=== PATIENT | male | born 1965 | race Hispanic/Latino ===

== ENCOUNTER 2016-08-22 10:37 | Emergency (ER) | payer OTHER ==
[~2016-08-22] VITALS: Ht 167 cm; Wt 77.1 kg
[~2016-08-22 10:37] MED LIST: HYDROCODONE/ACE1 TA1 PO
[2016-08-22 10:50] VITALS: BP 121/76
--- NOTE | 2016-08-22 10:56 | ED HAND/WRIST INJURY COMPLAINT ---
History of Present Illness General Chief Complaint: General Adult Stated Complaint: SENT BY [facility] [employer] FOR EVAL OF NEEDLE STICK Source: patient, pv installer tech Exam Limitations: no limitations Vital Signs & Intake/Output Vital Signs & Intake/Output Vital Signs Date Time Temp Pulse Resp B/P B/P Pulse O2 O2 Flow FiO2 Mean Ox Delivery Rate 08/22 1050 96.4 70 20 121/76 98 Room Air ED Intake and Output 08/23 0000 08/22 1200 Intake Total 120 Output Total Balance 120 Intake, Oral 120 Patient 170 lb Weight Allergies Coded Allergies: NO KNOWN ALLERGIES (04/24/14) Reconcile Medications Emtricitabine/Tenofovir (Truvada 200 MG-300 MG Tablet) 200 MG-300 MG TABLET 1 TAB PO DAILY hiv prophylaxis HYDROCODONE/ACETAMINOPHEN (Hydrocodon-Acetaminophen 5-325) 1 EACH TABLET 1 TAB PO TID PAIN Ondansetron (Zofran Odt) 4 MG TAB.RAPDIS 1 TAB PO Q6 PRN NAUSEA Raltegravir Potassium (Isentress) 400 MG TABLET 1 TAB PO BID HIV PROPHYLAXIS Triage Note: PT PRESENTS TO ER C/O OF NEEDLESTICK TO LEFT THUMB ON SUNDAY WHILE AT WORK. 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 PT STATES HE CLEANED OUT HIS HAND RIGHT AWAY AND WASHED IT WITH SOAP BUT WAS TOLD TO FOLLOW UP DUE TO THE EXPOSURE . PT UNSURE WHAT TIME OF NEEDLE IT WAS AND WHOM IT BELONGED TOO. Triage Nurses Notes Reviewed? yes Occurred: just prior to arrival Timing: single episode today Injury Environment: work Severity: mild Pain/Injury Location: Left: 1st finger. Method of Injury: needlestick No Modifying Factors: none HPI: This is a 51-year-old male presents the ER for chief complaint of needle stick injury to his left thumb while collecting trash this morning at 10 am. He states he felt a poke through the trash bag and it bled and he squeezed his finger as much as possible to make it bleed more. He then washed it. Tetanus is up-to-date last obtained 3 years ago. Denies any medical problems or medications. Source of the needle is unknown. He cannot describe the needle as he did not see it. Past History Travel History Traveled to [place] past 21 day No Medical History Any Pertinent Medical History? see below for history Neurological: NONE EENT: NONE Cardiovascular: NONE Respiratory: NONE Gastrointestinal: NONE Hepatic: NONE Renal: NONE Musculoskeletal: NONE Psychiatric: NONE Endocrine: NONE Tetanus Vaccine: 04/24/14 Surgical History Surgical History: non-contributory Psychosocial History What is your primary language Bolivian Tobacco Use: Never used ETOH Use: denies use Illicit Drug Use: denies illicit drug use Family History Hx Contributory? No Review of Systems Review of Systems Constitutional: Denies: chills, fever. EENTM: Reports: no symptoms. Respiratory: Denies: cough. Cardiovascular: Denies: chest pain, palpitations. GI: Reports: no symptoms. Genitourinary: Reports: no symptoms. Musculoskeletal: Reports: no symptoms. Skin: Reports: no symptoms. Neurological/Psychological: Reports: no symptoms. Hematologic/Endocrine: Reports: bleeding. Denies: bruising, polyuria, polydipsia. Immunologic/Allergic: Denies: splenectomy. All Other Systems: Reviewed and Negative Physical Exam Physical Exam General Appearance: well developed/nourished, mild distress Head: atraumatic Eyes: Bilateral: PERRL, EOMI. Ears, Nose, Throat: normal pharynx, normal ENT inspection, hearing grossly normal Neck: normal inspection, supple Cardiovascular/Respiratory: normal breath sounds, regular rate/rhythm Back: normal inspection Shoulder Left: normal range of motion, mass Shoulder Right: normal range of motion, normal inspection Elbow Left: normal range of motion, normal inspection Elbow Right: normal range of motion, normal inspection Forearm Left: normal range of motion, normal inspection Forearm Right: normal range of motion, normal inspection Wrist Left: normal range of motion, normal inspection Wrist Right: normal range of motion, normal inspection Hand Left: normal range of motion, PUNCTURE WOUND TO LEFT THUMB Hand Right: normal inspection, normal range of motion Neurologic/Tendon: normal sensation, normal motor functions, normal tendon functions Skin: intact, normal color, warm/dry Lymphatic: no anterior cervical salima Progress Differential Diagnosis: NEEDLESTICK INJURY Plan of Care: Orders Procedure Date/time Status HIV EXPOSURE/NEEDLESTICK 08/22 1042 Complete HEPT C ANTIBODY 08/22 1042 Complete HEPT B SURFACE ANTIBODY 08/22 1042 Complete GAMMA GLUTAMYL TRANSFERASE 08/22 1042 Complete COMPREHENSIVE METABOLIC PANEL 08/22 1042 Complete CBC WITHOUT DIFFERENTIAL 08/22 1042 Complete TRNSFRASE ASPART AMINO 08/22 1042 Complete TRNSFRAS ALANINE AMINO 05/30 1042 Complete Laboratory Tests 08/22/16 1137: Anion Gap 9, Estimated GFR > 60, BUN/Creatinine Ratio 17.1, Glucose 102 H, Calcium 9.4, Total Bilirubin 0.3, GGT 19, AST 34, ALT 42, Alkaline Phosphatase 59, Total Protein 6.9, Albumin 4.1, Globulin 2.8, Albumin/Globulin Ratio 1.5, CBC w Diff NO MAN DIFF REQ, RBC 4.83, MCV 87.1, MCH 28.6, RDW 13.4, MPV 7.3 L, Gran % 70.4, Lymphocytes % 21.6, Monocytes % 6.7, Eosinophils % 0.9, Basophils % 0.4, Absolute Granulocytes 5.5, Absolute Lymphocytes 1.7, Absolute Monocytes 0.5 , Absolute Eosinophils 0.1, Absolute Basophils 0, PUBS MCHC 32.9 L, Hep Bs Antibody NONREACTIVE, Hepatitis C Antibody NONREACTIVE, HIV 1&2 Antibody NONREACTIVE 08/22/16 1056: Hep Bs Antibody Cancelled, Hepatitis C Antibody Cancelled, HIV 1&2 Antibody Cancelled LABS DRAWN AND SENT. PEP PROPHYLAXIS DISCUSSED WITH PATIENT AND MEDICATIONS INITIATED IN THE ER. PATIENT INSTRUCTED WITH MAINTENANCE SUPERVISOR [employer]LECT[employer] TO FOLLOW UP WITH OCCUPATIONAL MEDICINE. (CASSANDRA GARLAND,HECTOR) Departure Departure Disposition: HOME OR SELF CARE Condition: Stable Clinical Impression Primary Impression: Needlestick injury of finger Referrals: PATIENT HAS NO PRIMARY CARE DR (PCP/Family) Additional Instructions: Follow-up with occupational medicine for further testing. Your prescriptions for the medications which we discussed R at her pharmacy in [place]. Please return to the ER for any changing or worsening symptoms. Departure Forms: Customer Survey General Discharge Information Prescriptions: Current Visit Scripts Emtricitabine/Tenofovir (Truvada 200 MG-300 MG Tablet) 1 TAB PO DAILY #30 TAB Raltegravir Potassium (Isentress) 1 TAB PO BID #60 TAB Ondansetron (Zofran Odt) 1 TAB PO Q6 PRN NAUSEA #20 TAB
[2016-08-22] MEDS ORDERED: ZOFRAN ODT4 M1 PO (11:35)
[2016-08-22] MEDS ORDERED: ISENTRESS400 M1 PO (11:35)
[2016-08-22] MEDS ORDERED: TRUVADA 200 MG1 EACH PO (11:35)
[2016-08-22 11:49] LABS: ABSOLUTE BASOPHIL COUNT 0 /CUMM (0.0-0.2); ABSOLUTE EOSINOPHIL COUNT 0.1 /CUMM (0.0-0.7); ABSOLUTE GRANULOCYTE CT 5.5 /CUMM (1.4-6.5); ABSOLUTE LYMPH COUNT 1.7 /CUMM (1.2-3.4); ABSOLUTE MONOCYTE COUNT 0.5 /CUMM (0.10-0.60); BASOPHIL % 0.4 % (0.0-2.0); EOSINOPHIL % 0.9 % (0-5); GRANULOCYTE % 70.4 % (42.2-75.2); MEAN CORPUSCULAR HGB 28.6 PG (27.0-31.0); MEAN CORPUSCULAR HGB CONC 32.9 G/DL (33.0-37.0); MEAN CORPUSCULAR VOLUME 87.1 FL (80.0-94.0); MEAN PLATELET VOLUME 7.3 FL (7.4-10.4); PLATELET COUNT 305 /CUMM (130-400); RBC DISTRIBUTION WIDTH 13.4 % (11.5-14.5); RED BLOOD CELL CT 4.83 /CUMM (4.70-6.10); WHITE BLOOD CELL COUNT 7.9 /CUMM (4.8-10.8)
== END 2016-08-22 11:56 ==
LOC: ERH 10:37
PROVIDERS: Emergency Medicine
DX: S61.032A Puncture wound without foreign body of left thumb without damage to nail, initial encounter (principal); W46.1XXA Contact with contaminated hypodermic needle, initial encounter; Y93.89 Activity, other specified; Y92.9 Unspecified place or not applicable
CPT/HCPCS: 86803; 87389